=== PATIENT | female | born 1980 | race Caucasian/White ===

== ENCOUNTER 2017-12-11 11:33 | Emergency (ER) | payer BC ==
--- OUTSIDE RECORDS SUMMARY | 2017-12-11 12:26 | XMS REPORT ---
:1980 Author Organization [facility] Address [address] [place] [address] Care Team Providers Name Role Phone Balbina Carbajal Unavailable Unavailable PROBLEMS Type Condition ICD9-CM Code [id number] Code Onset Condition SNOMED Code Dates Status Problem Family history Z80.3 Active 016281356 of malignant neoplasm of breast Problem Dysmenorrhea, N94.6 Active [id number] unspecified ALLERGIES No Information ENCOUNTERS Encounter Location Date Diagnosis [facility] [address] Dec, [place] [id number] [facility] 103 Nov, [place] [id number] [facility] [address] [facility] May, Family history of Road [address], malignant [place]oplasm [place] [id number] breast Z80.3 [facility] 103 May, Family history of OBGYN [facility], malignant neoplasm of [place] [id number] breast Z80.3 [facility] 103 Nov, Encounter for screening OBGYN [facility], mammogram for malignant [place] [id number] neoplasm of breast Z12.31 [facility] [address] [facility] Nov, Encounter for Road [address] [place], gynecological examination [place] [id number] (general) (routine) without abnormal findings Z01.419 ; Family history of malignant neoplasm of breast Z80.3 and Dysmenorrhea, unspecified N94.6 [facility] 103 Jun, AB FINDINGS-BREAST NEC OBGYN [facility], 793.89 [place] [id number] [facility] 103 16 May, 2016 Family history of OBGYN [facility], malignant neoplasm of [place] [id number] breast Z80.3 [facility] [address] [facility] 16 May, [address] [place] [address], malignant [place]oplasm [place] [id number] breast Z80.3 [facility] [address] [facility] Nov, Encounter for Road [address] [place] [address], gynecological examination [place] [id number] (general) (routine) without abnormal findings Z01.419 ; Family history of malignant neoplasm of breast Z80.3 and Dysmenorrhea, unspecified N94.6 [facility] 103 May, PELVIC PAIN 625.9 and OBGYN [facility], Abdominal mass, other [place] [id number] specified site 789.39 [facility] 103 May, PELVIC PAIN 625.9 [place] [id number] [facility] 103 May, [place] [id number] [facility] 103 May, FAMILY HX-BREAST MALIG OBGYN [facility], V16.3 [place] [id number] [facility] [address] [facility] May, FAMILY HX- BREAST MALIG Road [address] [place] [address], V16.3 ; VAGINAL DISCHARGE [place] [id number] 623.5 ; PELVIC PAIN 625.9 and Abdominal mass, other specified site 789.39 [facility] [address] [facility] Nov, ROUTINE PIPING SUPERVISOR EXAMINATION Road [address] [place] [address], V72.31 and FAMILY [place] [id number] HX-BREAST MALIG V16.3 [facility] 103 Nov, [place] [id number] [facility] 103 Apr, FAMILY HX-BREAST MALIG OBGYN [facility], V16.3 [place] [id number] [facility] [address] [facility] Apr, FAMILY HX- BREAST MALIG Road [address] [place] [address], V16.3 [place] [id number] [facility] 103 14 Oct, 2013 OBG[place] [id number] [facility] 103 12 Oct, 2013 Abnormal Breast Findings OBGYN [facility], 793.89 [place] [id number] [place] [facility] [address] [facility] Oct, ROUTINE PIPING SUPERVISOR EXAMINATION [address] [place], V72.31 and FAMILY [place] [id number] HX-BREAST MALIG V16.[address] [facility] 103 Sep, [place] [id number] [facility] 103 Dec, [place] [id number] [place] [facility] [address] [place] [facility] Oct, Road [address] [place], [place] [id number] [facility] 103 14 Oct, 2012 [place] [id number] [facility] 103 Oct, [place] [id number] [facility] [address] [place] [facility] Sep, ROUTINE PIPING SUPERVISOR EXAMINATION [address] [place], V72.31 ; PAP SMEAR W/O [place] [id number] PIPING SUPERVISOR EXAM V76.2 ; SCREEN MAMMOGRAM NEC V76.12 and FAMILY HX-BREAST MALIG V16.3 [facility] 103 Sep, [place], [place] [id number] [place] [facility] [address] [place] [facility] Sep, ROUTINE PIPING SUPERVISOR EXAMINATION [address] [place], V72.31 ; PAP SMEAR W/O [place] [id number] PIPING SUPERVISOR EXAM V76.2 ; FAMILY HX-BREAST MALIG V16.3 ; IBS [Irritable bowel syndrome] 564.1 ; Triplet , delivered 651.11 and Polycystic ovaries 256.4 [facility] 103 Sep, [place]BG[place], [place] [id number] [facility] [address] [facility] 11 Sep, 2010 INSERTION OF IUD V25.[address] [place] [id number] [facility] 103 Aug, [place] [id number] [facility] [address] [facility] Aug, FAMILY HX- BREAST MALIG Road [address] [place] [address], V16.3 [place] [id number] [facility] 103 30 Jul, [place] [id number] [facility] [address] [facility] 23 Jul, 2010 ROUTINE PIPING SUPERVISOR EXAMINATION [address] [place] [address], V72.31 ; FAMILY PLANNING [place] [id number] V25.09 ; STD Screen V74.5 ; Suppression menstruation 626.8 and FAMILY HX-BREAST MALIG V16.3 IMMUNIZATIONS No Known Immunizations SOCIAL HISTORY Never Assessed REASON FOR REFERRAL FUNCTIONAL STATUS PLAN OF CARE VITAL SIGNS MEDICATIONS Unknown Medications PROCEDURES No Known procedures RESULTS No Results REASON FOR VISIT Annual due- Com letter sent 12-10-17 MEDICAL (GENERAL) HISTORY Type Description Date Medical History PCOS Medical History IBS Medical History BRCA Negative Medical History depression/anxiety Surgical History 2010 Hospitalization History See above Hospitalization History childbirth
[2017-12-11 12:27] LABS: Hematocrit 39 % (35-47); Hemoglobin 13.4 g/dl (12.0-16.0); Mean Corpuscular HGB Conc 34 g/dl (31-36); Mean Corpuscular Hemoglobin 31 pg (27-31); Mean Corpuscular Volume 89 fL (80-97); Mean Platelet Volume 7.6 um3 (7.4-10.4); Platelet Count 258 10^3/ul (150-450); Red Blood Count 4.38 10^6/ul (4.0-5.4); Red Cell Distribution Width 13 % (10.5-15); White Blood Count 6.2 10^3/ul (3.5-10.8)
[2017-12-11 12:42] LABS: EGFR Non-African American 77.4 (>60)
[2017-12-11 12:49] LABS: Urine Appearance Clear; Urine Blood Negative (Negative); Urine Color Yellow; Urine Ketones Trace (Negative); Urine Protein Negative (Negative); Urine Specific Gravity 1.013 (1.010-1.030); Urine Urobilinogen Negative (Negative)
[2017-12-11 13:10] VITALS: BP 119/74
--- NOTE | 2017-12-13 10:54 | ED ---
Andre Dela Cruz Julia, scribed for Hong Narayanan MD on 12/11/17 at 1202 . Complex/Multi-Sys Presentation - HPI Summary HPI Summary: This patient is a 37 year old F presenting to [facility] with a chief complaint of intermittent bilateral hand and feet tingling for the past three days. Pt states she was recommended to come to ED by Dr. Espinoza; her PCP is Dr. Killian. Patient denies headache, changes in function, abdominal pain, CP, back pain, SOB, tachypnea, twitching, jerking, or difficulty speaking. She reports difficulty falling asleep and decreased appetite over the past couple of days due to a cold. She reports using Sudafed and Sinex spray without relief. 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 Pt mentions vegetarian diet. - History Of Current Complaint Chief Complaint: EDGeneral Time Seen by Provider: 12/11/17 11:53 Hx Obtained From: Patient Onset/Duration: Lasting Days Timing: Intermittent, Lasting: Location: Pain At: - tingling at bilateral hands and feet Character: Unable To Describe - tinglins Associated Signs And Symptoms: Positive: Decreased Oral Intake. Negative: Weakness, Headache, SOB, Chest Pain, Abdominal Pain, Back Pain Related History: Recent Illness - "cold" - Allergies/Home Medications Allergies/Adverse Reactions: Allergies Allergy/AdvReac Type Severity Reaction Status Date / Time mometasone furoate Allergy Mild Nausea Verified 12/11/17 13:11 amoxicillin Allergy Nausea Verified 12/11/17 13:11 clavulanic acid Allergy Nausea Verified 12/11/17 13:11 Home Medications: Home Medications buPROPion TAB* [Wellbutrin TAB*] 150 mg PO DAILY 12/11/17 [History Confirmed 06/20] PMH/Surg Hx/FS Hx/Imm Hx Endocrine/Hematology History: Denies: Hx Diabetes Cardiovascular History: Denies: Hx Hypertension, Hx Pacemaker/ICD Respiratory History: Denies: Hx Asthma History: Denies: Hx Dialysis, Hx Renal Disease Sensory History: Denies: Hx Hearing Aid Psychiatric History: Reports: Hx Anxiety Denies: Hx Panic Disorder - Cancer History Cancer Type, Location and Year: ONLY FAMILY HX/MOTHER SISTER AND PATERNAL AUNTS Hx Chemotherapy: No Hx Radiation Therapy: No - Surgical History Surgery Procedure, Year, and Place: c section 2009 Infectious Disease History: No Infectious Disease History: Denies: Traveled Outside the [place] in Last 30 Days - Family History Known Family History: Positive: Diabetes - borderline DM - father, Other - breast CA - mother - Social History Occupation: Employed Part-time Lives: With Family Alcohol Use: Occasionally Substance Use Type: Reports: None Smoking Status (MU): Never Smoked Tobacco Review of Systems Negative: Fever, Chills Negative: Erythema Positive: Nasal Discharge. Negative: Sore Throat Negative: Chest Pain Negative: Shortness Of Breath, Cough Negative: Abdominal Pain, Vomiting, Nausea Negative: dysuria, hematuria Negative: Myalgia, Edema Negative: Rash Neurological: Other - tingling of feet and hands Negative: Headache, Weakness All Other Systems Reviewed And Are Negative: Yes Physical Exam - Summary Physical Exam Summary: Constitutional: Well-developed, Well-nourished, Alert. (-) Distressed Skin: Warm, Dry HENT: Normocephalic; Atraumatic Eyes: Conjunctiva normal Neck: Musculoskeletal ROM normal neck. (-) JVD, (-) Stridor, (-) Tracheal deviation Cardio: Rhythm regular, rate normal, Heart sounds normal; Intact distal pulses; The pedal pulses are 2+ and symmetric. Radial pulses are 2+ and symmetric. (-) Murmur Pulmonary/Chest wall: Effort normal. (-) Respiratory distress, (-) Wheezes, (-) Rales Abd: Soft. (-) Tenderness, (-) Distension, (-) Guarding, (-) Rebound Musculoskeletal: (-) Edema Lymph: (-) Cervical adenopathy Neuro: Alert, Oriented x3, Strength normal, Cranial nerves II-XII are grossly intact. (-) Dysmetria, (-) Nystagmus, (-) Ataxia by finger to nose testing, (-) Sensory deficit; sensation is symmetric bilaterally. Reflexes are 2+ bilaterally Psych: Mood and affect Normal Triage Information Reviewed: Yes Vital Signs On Initial Exam: Initial Vitals Temp Pulse Resp BP Pulse Ox 98.5 F 104 15 135/81 100 12/11/17 11:37 12/11/17 11:37 12/11/17 11:37 12/11/17 11:37 12/11/17 11:37 Vital Signs Reviewed: Yes Diagnostics - Vital Signs Vital Signs Temp Pulse Resp BP Pulse Ox 04/10/18 11:37 98.5 F 104 15 135/81 100 - Laboratory Result Diagrams: 12/11/17 12:10 12/11/17 12:10 Lab Statement: Any lab studies that have been ordered have been reviewed, and results considered in the medical decision making process. Re-Evaluation - Re-Evaluation 1 Re-Evaluation Time: 13:44 Comment: Pt informed of results. Pt will be discharged. Complex Multi-Symp Course/Dx Course Of Treatment: Patient present with bilateral tingling of the feet and hands. Patient has no other symptoms, besideds a recent cold. Patient reports anxiety, stress, and vegetarian diet. Neuro exam is of no acute concern. There is no concern for CVA or Guillain Elverson syndrome. Likely cause of symptoms is anxiety or abnormal electrolytes. Bloodwork and UA are WNL. Follow up care with Primary Care Physician is deemed appropriate. - Diagnoses Provider Diagnoses: Bilateral leg paresthesia, Paresthesia of hand, bilateral Discharge - Sign-Out/Discharge Documenting (check all that apply): Discharge - Discharge Plan Condition: Stable Disposition: HOME Patient Education Materials: Paresthesia (ED) Referrals: Martina Killian MD [Primary Care Provider] - 1 Week (Follow up with your primary care physician regarding your symptoms. ) Additional Instructions: RETURN TO THE EMERGENCY DEPARTMENT FOR CHANGING OR WORSENING SYMPTOMS. The documentation as recorded by the Andre jade Julia accurately reflects the service I personally performed and the decisions made by , Hong Narayanan MD.
== END 2017-12-11 14:41 | disposition home or self-care (01) ==
LOC: ED 11:33
DX: R20.2 Paresthesia of skin (principal); F41.9 Anxiety disorder, unspecified; Z88.1 Allergy status to other antibiotic agents; Z88.0 Allergy status to penicillin; Z88.8 Allergy status to other drugs, medicaments and biological substances
CPT/HCPCS: 36415; 80053; 80307; 81003; 82306; 82607; 83735; 84439; 84443; 85027; 99282